=== PATIENT | male | born 1960 | race Caucasian/White ===

== ENCOUNTER 2020-01-19 14:34 | Emergency (ER) | payer OTHER ==
[~2020-01-19] VITALS: Ht 177.8 cm; Wt 83.9 kg
[~2020-01-19 14:34] MED LIST: ALAVERT10 MG PO; AMLODIPINE BESYL5 MG PO; FISH OIL 1,001000 M1 PO; FLEXERIL PO; LOSARTAN POTASS50 MG PO; TOPAMAX 25 MG T25 M1 PO
--- NOTE | 2020-01-19 15:08 | EKG ---
[place] [address] ELECTROCARDIOGRAM REPORT Name: KATHERIN DIEGO Room: [facility]#: [id number] Admission: Attend Phys: Discharge: Date of : 62 Date of Service: 01/19/20 1440 Report #: [id number] THIS REPORT FOR: //name// [facility] ED Test Date: 2020-01-19 Test Time: 14:40:58 Pat Name: KATHERIN DIEGO Department: Room: Gender: M [employer]: [facility] : 1960 Requested By: Dash Blum Order Number: [id number] MD: Vikash Rhoades Measurements Intervals [place] Rate: 100 P: 66 CA: 162 QRS: 40 QRSD: 76 T: 35 QT: 332 QTc: 429 Interpretive Statements Sinus tachycardia Left atrial enlargement Compared to ECG 04/08/2013 09:55:40 Atrial abnormality now present Sinus rhythm no longer present Electronically Signed On 01-19-2020 15:08:20 CDT by Vikash Rhoades [email or web address] <ELECTRONICALLY SIGNED> By: Vikash Rhoades MD, [facility] 01/19/20 1508 1440 1440 Vikash Rhoades MD, [facility] /EPI
[2020-01-19 15:13] LABS: ABSOLUTE BASOPHILS 0.1 thou/uL (0.0-0.2); ABSOLUTE LYMPHOCYTES 0.8 thou/uL (0.8-5.3); ABSOLUTE MONOCYTES 0.7 thou/uL (0.0-1.2); ABSOLUTE NEUTROPHILS 5.3 thou/uL (1.6-8.1); BASOPHILS 1.2 %; EOSINOPHILS 0.3 %; HEMATOCRIT 45.5 % (42.0-52.0); HEMOGLOBIN 16.1 gm/dL (14.0-18.0); MCH 35.2 pg (26.0-34.0); MCHC 35.3 g/dL (28.0-37.0); MCV 99.6 fL (80.0-100.0); MONOCYTES 10.5 %; MPV 6.5 fl. (7.2-11.1); NUCLEATED RBCS 0 /100WBC; PLATELET COUNT* 252 thou/uL (150-400); RBC 4.57 mil/uL (4.50-6.00); RDW-CV 13.1 % (10.5-14.5)
[2020-01-19 15:22] LABS: APTT 23.7 Seconds (25.0-31.3); PROTIME 9.9 Seconds (9.20-11.50)
[2020-01-19 15:23] LABS: CALCIUM 8.2 mg/dL (8.5-10.1); CREATININE 1.2 mg/dL (0.6-1.3); POTASSIUM 4.3 mmol/L (3.5-5.1)
[2020-01-19 15:27] LABS: TOTAL BILIRUBIN 0.8 mg/dL (<0.1-1.0); TOTAL PROTEIN 6.6 g/dL (6.4-8.2)
[2020-01-19 16:10] VITALS: BP 137/89
== END 2020-01-19 16:10 | disposition home or self-care (01) ==
LOC: M.ERS 14:34
PROVIDERS: Family Medicine
DX: H53.9 Unspecified visual disturbance (principal); H57.11 Ocular pain, right eye; F17.220 Nicotine dependence, chewing tobacco, uncomplicated; Z79.899 Other long term (current) drug therapy; Z88.1 Allergy status to other antibiotic agents; Z88.2 Allergy status to sulfonamides; Z88.8 Allergy status to other drugs, medicaments and biological substances